=== PATIENT | female | born 1960 | race Caucasian/White ===

== ENCOUNTER 2016-04-22 10:28 | Emergency (ER) | payer OTHER ==
[~2016-04-22] VITALS: Ht 147.3 cm; Wt 86.4 kg
[~2016-04-22 10:28] MED LIST: ATARAX,VISTARIL25 MG PO; ATARAX,VISTARIL50 MG PO; CIPROFLOXACIN500 M1 PO; CYANOCOBALAM1000 MCG PO; FLEXERIL5 MG PO; FLUOXETINE HCL20 MG PO; IBUPROFEN800 MG PO; MOTRIN800 MG PO; NAPROSYN500 MG PO; NAPROXEN500 MG PO; NEO-SYNEPHRINE15 M4 BOTH NARES; PEPCID20 MG PO; PREDNISONE20 MG PO; PROZAC40 MG PO; ST. JOSEPH ASPI81 MG PO; SYNTHROID88 MCG PO; TYLENOL EXTRA500 MG PO; TYLENOL REGULA325 MG PO; VICODIN 5-3001 EACH PO; ZYRTEC10 M2 PO
[2016-04-22 10:59] LABS: HEMATOCRIT 43.2 % (36.0-46.0); MCH 31.8 PG (29.0-34.0); MCHC 32.6 G/DL (30.0-36.0); MCV 97.5 FL (83-99); MEAN PLAT.VOLUME 11.9 uM^3 (9.5-12.4); PLATELET COUNT 253 K/uL (156-360); RBC DIS.WIDTH-CV 14.4 % (11.8-14.6); RBC DIS.WIDTH-SD 49.6 % (39-53); RED BLOOD COUNT 4.43 M/uL (3.80-5.20); WHITE BLOOD COUNT 5.4 K/uL (4.1-10.2)
[2016-04-22 11:12] LABS: CHLORIDE 105 mEq/L (99-109); SODIUM 141 mEq/L (136-147)
[2016-04-22 11:14] LABS: GLUCOSE 90 mg/dL (70-99)
[2016-04-22 11:15] LABS: ANION GAP 12 MEQ/L (2-14)
[2016-04-22 11:18] LABS: GFR ESTIMATE (CALCULATED) > 59 mL/min/
[2016-04-22 11:19] LABS: UREA NITROGEN (BUN) 14 mg/dL (9-23)
[2016-04-22 12:06] LABS: INFLUENZA A VIRAL ANTIGEN NEGATIVE; INFLUENZA B VIRAL ANTIGEN NEGATIVE
[2016-04-22] MEDS ORDERED: VENTOLIN HFA18 GM IH (12:18)
[2016-04-22 12:27] VITALS: BP 142/87
== END 2016-04-22 12:28 | disposition home or self-care (01) ==
LOC: EME 10:28
PROVIDERS: Nurse Practitioner Family
DX: J06.9 Acute upper respiratory infection, unspecified (principal); I25.2 Old myocardial infarction; Z79.82 Long term (current) use of aspirin; F17.210 Nicotine dependence, cigarettes, uncomplicated
CPT/HCPCS: 71020; 80048; 81003; 85027; 87502; 99281; 99284

== ENCOUNTER 2016-05-17 15:14 | Emergency (ER) | payer OTHER ==
[~2016-05-17] VITALS: Ht 147.3 cm; Wt 88.1 kg
[~2016-05-17 15:14] MED LIST changes: +VENTOLIN HFA18 GM IH
[2016-05-17] MEDS ORDERED: BUSPAR10 MG PO (17:01)
[2016-05-17] MEDS ORDERED: LO-DOSE ASPIRIN81 M2 PO (17:03)
[2016-05-17] MEDS ORDERED: VENLAFAXINE HC100 MG PO (17:03)
[2016-05-17] MEDS ORDERED: VITAMIN B122500 MCG PO (17:03)
[2016-05-17] MEDS ORDERED: ZANTAC75 M1 PO (17:04)
[2016-05-17] MEDS ORDERED: LEVOTHYROXINE100 MCG PO (17:04)
[2016-05-17 20:30] LABS: HEMATOCRIT 40.1 % (36.0-46.0); MCH 31.6 PG (29.0-34.0); MCHC 31.7 G/DL (30.0-36.0); MCV 99.8 FL (83-99); RBC DIS.WIDTH-CV 13.8 % (11.8-14.6); RBC DIS.WIDTH-SD 51.3 % (39-53); RED BLOOD COUNT 4.02 M/uL (3.80-5.20)
[2016-05-17 20:38] LABS: CHLORIDE 106 mEq/L (99-109); POTASSIUM 4.6 mEq/L (3.7-5.4); SODIUM 143 mEq/L (136-147)
[2016-05-17 20:40] LABS: GLUCOSE 102 mg/dL (70-99)
[2016-05-17 20:41] LABS: ANION GAP 9 MEQ/L (2-14); WHITE BLOOD COUNT 9.8 K/uL (4.1-10.2)
[2016-05-17 20:44] LABS: GFR ESTIMATE (CALCULATED) > 59 mL/min/
[2016-05-17 20:45] LABS: UREA NITROGEN (BUN) 13 mg/dL (9-23)
[2016-05-17 20:47] LABS: ADD MIUA? NO; BILIRUBIN NEGATIVE; BLOOD NEGATIVE; COLOR YELLOW ((YELLOW)); GLUCOSE (STRIP) NEGATIVE; KETONES NEGATIVE; LEUKOCYTES NEGATIVE; NITRITE NEGATIVE; PROTEIN (STRIP) NEGATIVE; SPECIFIC GRAVITY 1.019 (1.000-1.030); UCUL ADDED? NO; UROBILINOGEN 0.2 MG/DL (0.2-1.0)
[2016-05-17 22:14] LABS: MEAN PLAT.VOLUME 12.6 uM^3 (9.5-12.4); PLATELET COUNT 325 K/uL (156-360); TOTAL BILIRUBIN 0.2 mg/dL (0.0-1.0)
[2016-05-17 22:15] LABS: ALKALINE PHOSPHATASE 111 IU/L (3-129)
[2016-05-17 22:17] LABS: DIRECT BILIRUBIN 0.1 mg/dL (0.0-0.3)
[2016-05-17 22:18] LABS: LIPASE 23 U/L (1.0-51.0)
[2016-05-17] MEDS ORDERED: NAPROSYN500 MG PO (22:41)
[2016-05-17] MEDS ORDERED: TRAMADOL HCL50 MG PO (22:41)
[2016-05-17 23:20] VITALS: BP 119/73
== END 2016-05-17 23:20 | disposition home or self-care (01) ==
LOC: EME 15:14
PROVIDERS: Physician Assistant
DX: S63.501A Unspecified sprain of right wrist, initial encounter (principal); W18.09XA Striking against other object with subsequent fall, initial encounter; K80.50 Calculus of bile duct without cholangitis or cholecystitis without obstruction; Y92.512 Supermarket, store or market as the place of occurrence of the external cause; Y99.0 Civilian activity done for income or pay; E06.3 Autoimmune thyroiditis; F17.200 Nicotine dependence, unspecified, uncomplicated; Z91.030 Bee allergy status; Z88.5 Allergy status to narcotic agent; Z88.7 Allergy status to serum and vaccine; Z91.018 Allergy to other foods; Z88.8 Allergy status to other drugs, medicaments and biological substances
CPT/HCPCS: 71020; 73110; 74177; 80048; 80076; 81003; 83690; 85027; 99281; 99285; J1885; J3010; J7030

== ENCOUNTER 2016-07-02 10:30 | Emergency (ER) | payer OTHER ==
[~2016-07-02] VITALS: Ht 147.3 cm; Wt 88.1 kg
[~2016-07-02 10:30] MED LIST changes: +BUSPAR10 MG PO; +LEVOTHYROXINE100 MCG PO; +LO-DOSE ASPIRIN81 M2 PO; +TRAMADOL HCL50 MG PO; +VENLAFAXINE HC100 MG PO; +VITAMIN B122500 MCG PO; +ZANTAC75 M1 PO
[2016-07-02 11:34] LABS: BASOPHIL COUNT 0.1 K/uL (0-0.1); EOSINOPHIL COUNT 0.2 K/uL (0-0.3); HEMATOCRIT 40.8 % (36.0-46.0); IMMATURE GRANULOCYTE (%) 0.3 % (0.0-0.7); INSTRUMENT ABS NEUTROPHIL CT 2.8 K/uL; LYMPHOCYTE COUNT 3.7 K/uL (1.0-2.8); MCH 31.9 PG (29.0-34.0); MCHC 32.6 G/DL (30.0-36.0); MCV 97.8 FL (83-99); MEAN PLAT.VOLUME 11.4 uM^3 (9.5-12.4); MONOCYTE (%) 9.3 % (3-12); MONOCYTE COUNT 0.7 K/uL (0-0.8); NEUTROPHIL (%) 37.6 % (45-76); NEUTROPHIL COUNT 2.8 K/uL (1.8-6.4); PLATELET COUNT 307 K/uL (156-360); RBC DIS.WIDTH-CV 14.4 % (11.8-14.6); RBC DIS.WIDTH-SD 51.8 % (39-53); RED BLOOD COUNT 4.17 M/uL (3.80-5.20); WHITE BLOOD COUNT 7.3 K/uL (4.1-10.2)
[2016-07-02 11:44] LABS: CHLORIDE 106 mEq/L (99-109); POTASSIUM 4.2 mEq/L (3.7-5.4); SODIUM 140 mEq/L (136-147)
[2016-07-02 11:45] LABS: GLUCOSE 76 mg/dL (70-99)
[2016-07-02 11:47] LABS: ANION GAP 11 MEQ/L (2-14)
[2016-07-02 11:49] LABS: GFR ESTIMATE (CALCULATED) > 59 mL/min/
[2016-07-02 11:50] LABS: UREA NITROGEN (BUN) 15 mg/dL (9-23)
[2016-07-02 11:57] LABS: TROP-I INTERPRETATION NEGATIVE; TROPONIN-I < 0.01 ng/mL (0.0-0.30)
[2016-07-02 14:33] LABS: TROP-I INTERPRETATION NEGATIVE; TROPONIN-I < 0.01 ng/mL (0.0-0.30)
[2016-07-02] MEDS ORDERED: TYLENOL WITH C1 EACH PO (16:49)
[2016-07-02 17:09] VITALS: BP 120/85
== END 2016-07-02 17:11 | disposition home or self-care (01) ==
LOC: EME 10:30
PROVIDERS: Emergency Medicine
DX: R07.89 Other chest pain (principal); S09.90XA Unspecified injury of head, initial encounter; W18.39XA Other fall on same level, initial encounter; I25.2 Old myocardial infarction; F32.9 Major depressive disorder, single episode, unspecified; F41.9 Anxiety disorder, unspecified; Z79.82 Long term (current) use of aspirin; F17.200 Nicotine dependence, unspecified, uncomplicated
CPT/HCPCS: 70450; 71010; 80048; 84484; 85025; 93005; 99281; 99285; J1885

== ENCOUNTER 2016-07-20 08:09 | Emergency (ER) | payer OTHER ==
[~2016-07-20] VITALS: Ht 147.3 cm; Wt 87.8 kg
[~2016-07-20 08:09] MED LIST changes: +TYLENOL WITH C1 EACH PO
[2016-07-20 08:12] VITALS: BP 120/84
[2016-07-20 10:02] LABS: POINT-OF-CARE METER ID UU13113702
[2016-07-20] MEDS ORDERED: MOTRIN800 MG PO (10:07)
== END 2016-07-20 10:33 | disposition home or self-care (01) ==
LOC: EME → EDBD 08:09 → EME 08:38
PROVIDERS: Nurse Practitioner Family
DX: S93.401A Sprain of unspecified ligament of right ankle, initial encounter (principal); W01.0XXA Fall on same level from slipping, tripping and stumbling without subsequent striking against object, initial encounter; Z79.82 Long term (current) use of aspirin; F17.200 Nicotine dependence, unspecified, uncomplicated
CPT/HCPCS: 73610; 82948; 99281; 99284

== ENCOUNTER 2016-09-28 11:55 | Emergency (ER) | payer OTHER ==
[~2016-09-28] VITALS: Ht 147.3 cm; Wt 87.6 kg
[2016-09-28 12:35] LABS: MCH 32.3 PG (29.0-34.0); MCHC 32.3 G/DL (30.0-36.0); MCV 100.3 FL (83-99); MEAN PLAT.VOLUME 11.4 uM^3 (9.5-12.4); PLATELET COUNT 305 K/uL (156-360); RBC DIS.WIDTH-CV 13.8 % (11.8-14.6); RBC DIS.WIDTH-SD 51.5 % (39-53); RED BLOOD COUNT 3.99 M/uL (3.80-5.20); WHITE BLOOD COUNT 6.7 K/uL (4.1-10.2)
[2016-09-28 12:45] LABS: CHLORIDE 106 mEq/L (99-109); POTASSIUM 4.4 mEq/L (3.7-5.4); SODIUM 141 mEq/L (136-147)
[2016-09-28 12:47] LABS: GLUCOSE 96 mg/dL (70-99)
[2016-09-28 12:49] LABS: ANION GAP 10 MEQ/L (2-14); TOTAL BILIRUBIN 0.2 mg/dL (0.0-1.0)
[2016-09-28 12:51] LABS: ALKALINE PHOSPHATASE 108 IU/L (3-129); GFR ESTIMATE (CALCULATED) > 59 mL/min/
[2016-09-28 12:52] LABS: UREA NITROGEN (BUN) 16 mg/dL (9-23)
[2016-09-28 13:00] LABS: QUANTITATIVE HCG < 4.0 MIU/ML
[2016-09-28 13:09] LABS: ADD MIUA? YES; BILIRUBIN NEGATIVE; BLOOD NEGATIVE; COLOR YELLOW ((YELLOW)); GLUCOSE (STRIP) NEGATIVE; KETONES NEGATIVE; LEUKOCYTES NEGATIVE; NITRITE NEGATIVE; PROTEIN (STRIP) 30; SPECIFIC GRAVITY 1.035 (1.000-1.030); UROBILINOGEN 0.2 MG/DL (0.2-1.0)
[2016-09-28 13:16] LABS: BACTERIA RARE /HPF; EPITHELIAL CELLS 2+ /HPF; MUCUS 1+ /LPF; RED BLOOD CELLS 0-5 /HPF (0-5); UCUL ADDED? NO; WHITE BLOOD CELLS 0-5 /HPF (0-5)
[2016-09-28 14:35] LABS: TROP-I INTERPRETATION NEGATIVE; TROPONIN-I < 0.01 ng/mL (0.0-0.30)
[2016-09-28] MEDS ORDERED: BENTYL10 MG PO (17:30)
[2016-09-28] MEDS ORDERED: ZOFRAN ODT4 MG PO (17:30)
[2016-09-28 18:29] LABS: TROP-I INTERPRETATION NEGATIVE; TROPONIN-I < 0.01 ng/mL (0.0-0.30)
[2016-09-28 19:07] VITALS: BP 113/76
== END 2016-09-28 15:00 | disposition home or self-care (01) ==
LOC: EME 11:55 → EXP 11:55
PROVIDERS: Physician Assistant Medical
DX: K80.20 Calculus of gallbladder without cholecystitis without obstruction (principal); I25.2 Old myocardial infarction; Z79.82 Long term (current) use of aspirin; F17.200 Nicotine dependence, unspecified, uncomplicated
CPT/HCPCS: 74022; 76705; 80053; 81003; 84484; 84702; 85027; 93005; 99281; 99283

== ENCOUNTER 2016-11-12 22:08 | Emergency (ER) | payer OTHER ==
[~2016-11-12] VITALS: Ht 147.3 cm; Wt 88.3 kg
[~2016-11-12 22:08] MED LIST changes: +BENTYL10 MG PO; +ZOFRAN ODT4 MG PO
[2016-11-12] MEDS ORDERED: NORCO 5/3251 TABLET PO (22:48)
[2016-11-12] MEDS ORDERED: PEN-VEE K,VEET500 MG PO (22:48)
[2016-11-12 23:08] VITALS: BP 139/93
== END 2016-11-12 23:09 | disposition home or self-care (01) ==
LOC: EME 22:08
DX: K02.9 Dental caries, unspecified (principal); Z79.82 Long term (current) use of aspirin; F17.200 Nicotine dependence, unspecified, uncomplicated
CPT/HCPCS: 99281; 99283

== ENCOUNTER 2017-01-31 11:07 | Emergency (ER) | payer OTHER ==
[~2017-01-31] VITALS: Ht 147.3 cm; Wt 86.7 kg
[~2017-01-31 11:07] MED LIST changes: +NORCO 5/3251 TABLET PO; +PEN-VEE K,VEET500 MG PO
[2017-01-31] MEDS ORDERED: DELSYM COUGH+C180 M1 PO (14:26)
[2017-01-31] MEDS ORDERED: VENTOLIN HFA18 GM IH (14:26)
[2017-01-31 15:21] VITALS: BP 116/74
== END 2017-01-31 15:22 | disposition home or self-care (01) ==
LOC: EME 11:07
DX: J20.9 Acute bronchitis, unspecified (principal); F17.200 Nicotine dependence, unspecified, uncomplicated; F32.9 Major depressive disorder, single episode, unspecified; E06.3 Autoimmune thyroiditis; I25.2 Old myocardial infarction; Z88.1 Allergy status to other antibiotic agents; Z88.5 Allergy status to narcotic agent; Z88.2 Allergy status to sulfonamides; Z88.7 Allergy status to serum and vaccine; Z91.030 Bee allergy status; Z91.018 Allergy to other foods; Z88.8 Allergy status to other drugs, medicaments and biological substances
CPT/HCPCS: 71020; 94640; 99281; 99283

== ENCOUNTER 2017-08-13 11:53 | Emergency (ER) | payer OTHER ==
[~2017-08-13] VITALS: Ht 147.3 cm; Wt 93.8 kg
[~2017-08-13 11:53] MED LIST changes: +DELSYM COUGH+C180 M1 PO
[2017-08-13] MEDS ORDERED: MOTRIN600 MG PO (13:22)
[2017-08-13 14:18] VITALS: BP 138/78
== END 2017-08-13 14:19 | disposition home or self-care (01) ==
LOC: EME 11:53
DX: S09.90XA Unspecified injury of head, initial encounter (principal); S50.02XA Contusion of left elbow, initial encounter; M54.9 Dorsalgia, unspecified; W10.9XXA Fall (on) (from) unspecified stairs and steps, initial encounter; Y93.01 Activity, walking, marching and hiking; I25.2 Old myocardial infarction; F17.200 Nicotine dependence, unspecified, uncomplicated; Z79.82 Long term (current) use of aspirin; Z88.5 Allergy status to narcotic agent; Z88.1 Allergy status to other antibiotic agents; Z88.7 Allergy status to serum and vaccine
CPT/HCPCS: 72070; 73080; 99281; 99284

== ENCOUNTER 2017-10-30 22:37 | Emergency (ER) | payer OTHER ==
[~2017-10-30] VITALS: Ht 147.3 cm; Wt 94.7 kg
[~2017-10-30 22:37] MED LIST changes: +MOTRIN600 MG PO
[2017-10-30 23:11] LABS: HEMATOCRIT 40.5 % (36.0-46.0); HEMOGLOBIN 13.1 G/DL (11.9-15.5); MCH 32.5 PG (29.0-34.0); MCHC 32.3 G/DL (30.0-36.0); MCV 100.5 FL (83-99); PLATELET COUNT 325 K/uL (156-360); RBC DIS.WIDTH-CV 14.8 % (11.8-14.6); RBC DIS.WIDTH-SD 55.6 % (39-53); RED BLOOD COUNT 4.03 M/uL (3.80-5.20); WHITE BLOOD COUNT 8.6 K/uL (4.1-10.2)
[2017-10-30 23:25] LABS: CHLORIDE 105 mEq/L (99-109); POTASSIUM 4.2 mEq/L (3.7-5.4); SODIUM 141 mEq/L (136-147)
[2017-10-30 23:27] LABS: GLUCOSE 95 mg/dL (70-99)
[2017-10-30 23:31] LABS: GFR ESTIMATE (CALCULATED) > 59 mL/min/
[2017-10-30 23:32] LABS: UREA NITROGEN (BUN) 15 mg/dL (9-23)
[2017-10-30 23:42] LABS: TROP-I INTERPRETATION NEGATIVE; TROPONIN-I < 0.01 ng/mL (0.0-0.30)
[2017-10-31] MEDS ORDERED: NAPROSYN500 MG PO (00:32)
[2017-10-31] MEDS ORDERED: TESSALON PERLE100 MG PO (00:32)
[2017-10-31] MEDS ORDERED: AFRIN,GENASAL D15 ML BOTH NARES (00:33)
[2017-10-31 00:57] VITALS: BP 177/60
== END 2017-10-31 00:57 | disposition home or self-care (01) ==
LOC: EME 22:37
DX: J06.9 Acute upper respiratory infection, unspecified (principal); R94.31 Abnormal electrocardiogram [ECG] [EKG]; I25.2 Old myocardial infarction; E06.3 Autoimmune thyroiditis; F32.9 Major depressive disorder, single episode, unspecified; F41.9 Anxiety disorder, unspecified; Z79.82 Long term (current) use of aspirin; Z87.891 Personal history of nicotine dependence; Z86.39 Personal history of other endocrine, nutritional and metabolic disease; Z98.51 Tubal ligation status; Z90.49 Acquired absence of other specified parts of digestive tract; Z88.1 Allergy status to other antibiotic agents; Z88.5 Allergy status to narcotic agent; Z91.018 Allergy to other foods; Z91.038 Other insect allergy status; Z88.7 Allergy status to serum and vaccine
CPT/HCPCS: 71046; 80048; 84484; 85027; 93005